=== PATIENT | female | born 1955 | race Caucasian/White ===

== ENCOUNTER → 2016-09-25 | Outpatient (REF) | payer OTHER ==
[2016-09-25 13:49] LABS: ANION GAP 5 MEQ/L (8-16); BLOOD UREA NITROGEN 10 MG/DL (7-18); CALCIUM LEVEL 8.6 MG/DL (8.8-10.2); CARBON DIOXIDE LEVEL 27 MEQ/L (21-32); CHLORIDE LEVEL 109 MEQ/L (98-107); CHOLESTEROL LEVEL 214 MG/DL (<200); CREATININE FOR GFR 0.62 MG/DL (0.55-1.02); GLOMERULAR FILTRATION RATE > 60.0 (>45); GLUCOSE, FASTING 114 MG/DL (80-110); POTASSIUM SERUM 4.1 MEQ/L (3.5-5.1); SODIUM LEVEL 141 MEQ/L (136-145); TRIGLYCERIDES LEVEL 118 MG/DL (<150)
== END ==
LOC: M LAB REF 13:04
PROVIDERS: ATTEND Nurse Practitioner Family
DX: E55.9 Vitamin D deficiency, unspecified (principal); I10 Essential (primary) hypertension

== ENCOUNTER → 2017-03-18 | Outpatient (CLI) | payer OTHER ==
--- NOTE | 2017-03-18 14:44 | REP ---
Digital diagnostic bilateral mammography with CAD and focused left breast sonography: History: Several brief episodes of bloody nipple discharge left breast which the patient associates with minor trauma over a period of the last 2 years. Pain in the left breast. Comparison mammography February 07, 2016. Findings: Routine views of each breast were augmented by a true MLO view of the left breast. There are mild scattered fibroglandular elements bilaterally. Pattern is symmetric and unchanged. No subareolar or other neodensity is seen. No spiculation or microcalcification is seen. No architectural distortion or worrisome skin change is seen. There is no evidence mammographically to suggest nipple inversion on either side. No subareolar mass or nodule is seen. Sonographic findings: The retroareolar region of the left breast is examined sonographically. There are a few slightly dilated ducts just beneath the nipple. Also noted is a 0.3 x 0.3 cm cystic area within the nipple itself on the left side which may be a small dilated breast duct segment in the nipple. No subareolar soft tissue mass is seen. No acoustic shadowing or architectural distortion is seen. Impression: BI-RADS/ACR category 2 mammogram. Benign finding(s). Routine annual screening mammography (for women over age 40). BI-RADS category 2 benign bilateral breast imaging. A small 3 mm cyst is seen within the left nipple and there are a few slightly dilated retroareolar ducts on the left. No other finding is seen. Clinical followup is recommended. This mammogram was interpreted with the aid of an FDA-approved computer-aided detection system. The patient states she/he had a clinical breast exam in February 2017. The patient letter being requested is M2. Signed by Rikki Wilson MD 03/18/2017 03:32 P
== END ==
LOC: M RAD 12:49
PROVIDERS: ATTEND Nurse Practitioner Family
DX: N64.4 Mastodynia (principal); N64.52 Nipple discharge
CPT/HCPCS: 76642; G0204

== ENCOUNTER → 2017-03-19 | Outpatient (REF) | payer OTHER | LOC: M SFHCWAGY 14:28 | PROVIDERS: ATTEND Nurse Practitioner Family | DX: Z12.4 Encounter for screening for malignant neoplasm of cervix (principal) ==

== ENCOUNTER → 2017-03-19 | Outpatient (REF) | payer OTHER | LOC: M SFHCWAGY 19:05 | PROVIDERS: ATTEND Nurse Practitioner Family | DX: N64.52 Nipple discharge (principal) ==

== ENCOUNTER 2017-06-08 09:52 | Emergency (ER) | payer OTHER | END 2017-06-08 11:40 | disposition home or self-care (01) | LOC: M ED 09:52 | DX: J20.9 Acute bronchitis, unspecified (principal); I10 Essential (primary) hypertension; M79.89 Other specified soft tissue disorders; Z87.09 Personal history of other diseases of the respiratory system; F17.200 Nicotine dependence, unspecified, uncomplicated; Z88.2 Allergy status to sulfonamides; Z79.899 Other long term (current) drug therapy | CPT/HCPCS: 71046 ==

== ENCOUNTER → 2018-04-29 | Outpatient (CLI) | payer OTHER ==
[~2018-04-29] MED LIST: AMLO10TA5 PO; AZIT500T2 PO; BENA20TA PO
--- NOTE | 2018-04-29 16:25 | REPMRS ---
Patient History The patient states she had a clinical breast exam in 04/2018. Patient is postmenopausal. No known family history of cancer. No Hormone Replacement Therapy Digital Woman Screen Mammo: April 29, 2018 - Exam #: [id number] Bilateral CC and MLO view(s) were taken. Technologist: Nathaly Branch, Technologist Prior study comparison: March 18, 2017, digital mammo diagnostic bilateral, performed at [facility]. February 07, 2016, digital woman screen mammo performed at [facility]. FINDINGS: There are scattered fibroglandular densities. There is a stable well-circumscribed 4 mm nodule in the right breast unchanged. There has been no change in the appearance of the mammogram from the prior studies. There is a mild amount of scattered fibroglandular density which is fairly symmetric. There is no interval development of dominant mass, architectural distortion, or clustered microcalcification suggestive of malignancy. 3-D tomosynthesis shows no additional findings. Assessment: BI-RADS/ACR category 2 mammogram. Benign finding(s). Recommendation Routine screening mammogram of both breasts in 1 year (for women over age 40). This patient's Lifetime Breast Cancer RIsk is estimated at 8.5 %. This mammogram was interpreted with the aid of an FDA-approved computer-aided dectection system. Electronically Signed By: Sumit Wilson MD 04/29/18 [id number]
== END ==
LOC: M WHC 13:39
PROVIDERS: ATTEND Nurse Practitioner Family
DX: Z12.31 Encounter for screening mammogram for malignant neoplasm of breast (principal); Z78.0 Asymptomatic menopausal state

== ENCOUNTER → 2018-04-29 | Outpatient (REF) | payer OTHER | LOC: M SFHCWAGY 14:10 | PROVIDERS: ATTEND Nurse Practitioner Family | DX: Z12.4 Encounter for screening for malignant neoplasm of cervix (principal) ==

== ENCOUNTER → 2018-06-12 | Outpatient (REF) | payer OTHER ==
[2018-06-12 13:26] LABS: ALBUMIN 3.7 GM/DL (3.2-5.2); ALT/SGPT 19 U/L (12-78); BILIRUBIN,TOTAL 0.5 MG/DL (0.2-1.0); BLOOD UREA NITROGEN 11 MG/DL (7-18); CALCIUM LEVEL 8.7 MG/DL (8.8-10.2); CARBON DIOXIDE LEVEL 23 MEQ/L (21-32); CHLORIDE LEVEL 110 MEQ/L (98-107); CHOLESTEROL LEVEL 205 MG/DL (<200); CHOLESTEROL RISK RATIO 5.394 (<5); CREATININE FOR GFR 0.74 MG/DL (0.55-1.30); GLOMERULAR FILTRATION RATE > 60.0 (>45); GLUCOSE, FASTING 107 MG/DL (70-100); HDL CHOLESTEROL 38 MG/DL (>40); LDL CHOLESTEROL 143 MG/DL (<100); NON-HDL-C 167 MG/DL; POTASSIUM SERUM 4.4 MEQ/L (3.5-5.1); SODIUM LEVEL 141 MEQ/L (136-145); TOTAL PROTEIN 7.1 GM/DL (6.4-8.2); TRIGLYCERIDES LEVEL 121 MG/DL (<150)
== END ==
LOC: M LAB REF 12:20
PROVIDERS: ATTEND Nurse Practitioner Adult Health
DX: E78.2 Mixed hyperlipidemia (principal); I10 Essential (primary) hypertension

== ENCOUNTER 2018-12-08 12:23 | Emergency (ER) | payer OTHER ==
[~2018-12-08] VITALS: Ht 167.6 cm; Wt 90.5 kg
[2018-12-08 13:22] LABS: BASO % 0.5 % (0.0-1.0); EOS # 0.2 10^3/uL (0.0-0.50); HEMATOCRIT 44.7 % (36.0-47.0); HEMOGLOBIN 14.9 g/dl (12.0-15.5); LYMPH # 2.9 10^3/uL (1.5-4.5); LYMPH % 39.2 % (24.0-44.0); MEAN CORPUSCULAR HEMOGLOBIN 31.3 pg (27.0-33.0); MEAN CORPUSCULAR HGB CONC 33.3 g/dl (32.0-36.5); MEAN CORPUSCULAR VOLUME 93.9 fl (80.0-96.0); MONO # 0.5 10^3/uL (0.0-0.8); MONO % 6.9 % (0.0-5.0); NEUTROPHILS # 3.7 10^3/uL (1.8-7.7); NEUTROPHILS % 51.1 % (36.0-66.0); PLATELET COUNT, AUTOMATED 236 10^3/uL (150-450); RED BLOOD COUNT 4.76 10^6/uL (4.00-5.40); WHITE BLOOD COUNT 7.3 10^3/uL (4.0-10.0)
[2018-12-08 13:35] LABS: INR 1.02; PROTHROMBIN TIME 13.1 SECONDS (11.8-14.0)
[2018-12-08 13:44] LABS: ALBUMIN 3.8 GM/DL (3.2-5.2); ALT/SGPT 18 U/L (12-78); BILIRUBIN,TOTAL 0.4 MG/DL (0.2-1.0); BLOOD UREA NITROGEN 8 MG/DL (7-18); CARBON DIOXIDE LEVEL 24 MEQ/L (21-32); CHLORIDE LEVEL 110 MEQ/L (98-107); CK-MB VALUE MASS 1.4 NG/ML (<3.6); CPK CREATINE PHOSPHOKINASE 53 U/L (26-192); CREATININE FOR GFR 0.76 MG/DL (0.55-1.30); GLOMERULAR FILTRATION RATE > 60.0 (>45); GLUCOSE, FASTING 169 MG/DL (70-100); LIPASE 138 U/L (73-393); MB/CK RELATIVE INDEX 2.64 (< OR =4); POTASSIUM SERUM 3.9 MEQ/L (3.5-5.1); SODIUM LEVEL 141 MEQ/L (136-145); TOTAL PROTEIN 7.2 GM/DL (6.4-8.2); TROPONIN I < 0.02 NG/ML (< 0.10)
[2018-12-08] MEDS ORDERED: METO1TAB32 PO (13:45)
[2018-12-08 14:45] VITALS: BP 143/80
--- NOTE | 2018-12-09 10:21 | ECGEPIP ---
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
== END 2018-12-08 15:36 | disposition home or self-care (01) ==
LOC: M ED 12:23
DX: I10 Essential (primary) hypertension (principal); Z79.899 Other long term (current) drug therapy; Z88.1 Allergy status to other antibiotic agents; Z88.2 Allergy status to sulfonamides; F17.210 Nicotine dependence, cigarettes, uncomplicated

== ENCOUNTER 2019-01-27 12:43 | Observation (INO) | payer OTHER ==
[~2019-01-27] VITALS: Ht 167.6 cm; Wt 91.2 kg
[~2019-01-27 12:43] MED LIST changes: +METO1TAB32 PO
--- NOTE | 2019-01-27 14:07 | REP ---
CT BRAIN WITHOUT CONTRAST: HISTORY: TIA. No comparison brain imaging. CT FINDINGS: Preliminary digital field reporter radiograph demonstrates the patient is edentulous. There are metallic sutures at the angle of the mandible on each side. Bone window settings demonstrate an intact bony calvarium. There is moderate vascular calcification in the distal internal carotid arteries bilaterally. No intraorbital abnormality is seen. On soft-tissue window settings, there is moderate generalized atrophy. There is no evidence of intracranial hemorrhage. No infarct, mass, extra-axial fluid collection, or midline shift is seen. There is minimal small vessel change. IMPRESSION: Mild generalized volume loss. Vascular calcification. No acute intracranial abnormality. Electronically Signed by Rikki Wilson MD 01/27/2019 04:54 P
[2019-01-27 15:02] LABS: HEMATOCRIT 47.2 % (36.0-47.0); HEMOGLOBIN 15.5 g/dl (12.0-15.5); MEAN CORPUSCULAR HEMOGLOBIN 30.7 pg (27.0-33.0); MEAN CORPUSCULAR HGB CONC 32.8 g/dl (32.0-36.5); MEAN CORPUSCULAR VOLUME 93.5 fl (80.0-96.0); PLATELET COUNT, AUTOMATED 305 10^3/uL (150-450); RED BLOOD COUNT 5.05 10^6/uL (4.00-5.40); WHITE BLOOD COUNT 10.7 10^3/uL (4.0-10.0)
--- NOTE | 2019-01-27 15:28 | REP ---
CHEST, SINGLE VIEW: There is no evidence of acute infiltrate. No pleural effusion is seen. The heart is normal in size. The mediastinal silhouette is unremarkable. The visualized osseous structures are intact. There is calcification of the thoracic aorta. IMPRESSION: No acute pulmonary disease. Electronically Signed by Elliott Pitts MD 01/28/2019 06:08 P
--- NOTE | 2019-01-27 17:42 | HPEPDOC ---
[facility] Medical History & Physical Date of Admission Jan 27, 2019 Date of Service: Jan 27, 2019 Other Provider Eleazar Kern Attending Physician: ANNIE JIMENEZ MD History and Physical CHIEF COMPLAINT: Blurry vision HISTORY OF PRESENT ILLNESS: 63-year-old female with past medical history of hypertension, presents from primary care's office for blurry vision and hypertension. Patient has had a long history of hypertension, poorly controlled over the past few months with multiple medication adjustments and continues to have uncontrolled hypertension. Patient reports one episode of blurry and distorted vision on Saturday, which lasted for 45 minutes and self resolved. She has never had a similar episode in the past and has not recurred since. She had a complete evaluation by an 2nd pressman 12 days ago. She is currently asymptomatic, does not have any complaints at this time and reports she would not have come to the ED if her primary care did not insist. Workup in the ED including EKG, labs and CAT scan of the head are negative for acute pathology. ED physician discussed the case with neurology, who recommended admission with further workup prior to discharging home. Patient denies any dizziness, chest pain, shortness of breath, abdominal pain, nausea, vomiting or constipation at this time. 10 point review of system was negative except for above PAST MEDICAL HISTORY: 1. Hypertension. 2. Active smoker. PAST SURGICAL HISTORY: 1. Jaw surgery. SOCIAL HISTORY: Marital status: . Tobacco use:1 pack per day for the past 40 years ETOH: Social FAMILY HISTORY: Noncontributory ALLERGIES: Please see below. HOME MEDICATIONS: Please see below. PHYSICAL EXAMINATION: VITAL SIGNS: See below GENERAL APPEARANCE: No distress. HEENT: Normocephalic, atraumatic, EOMI, pupils equal and reactive to light, moist mucous membranes. CARDIOVASCULAR: S1, S2, no murmurs appreciated. LUNGS: Clear to auscultation. ABDOMEN: Soft, nontender, nondistended, positive bowel sounds. EXTREMITIES: Range of motion intact. NEUROLOGICAL: Alert and oriented 3, no focal deficits. PSYCHIATRIC: Calm. LABORATORY DATA: See below. IMAGING: CT head negative for acute pathology MICROBIOLOGY: Please see below. ASSESSMENT: 63-year-old female with past medical history of hypertension and active smoking, presents with symptoms concerning for TIA, to be admitted for fu rther neurological workup.. . PLAN: 1. Blurry vision. CT head negative. MRI pending. Further workup as per neurology. Aspirin. Patient does not appear to require any need for PT/OT or swallow eval 2. Hypertension. Blood pressure is poorly controlled. Continue home meds. Will add and titrate medication as needed for adequate blood pressure control. DVT prophylaxis: Heparin subcutaneous. GI prophylaxis: Not needed at this time Vital Signs Vital Signs Date Time Temp Pulse Resp B/P (MAP) Pulse Ox O2 Delivery O2 Flow Rate FiO2 01/27/19 15:34 67 16 140/71 (94) 96 01/27/19 12:44 96.6 Room Air Laboratory Data Labs 24H Laboratory Tests 2 01/27/19 13:41: POC Glucose (Misc Panel) 109H, POC Sodium (Misc Panel) 140, POC Potassium (Misc Panel) 4.2, POC Chloride (Misc Panel) 108, POC Total CO2 (Misc Panel) 24.0, POC Blood Urea Nitrogen (Misc Panel 9, POC Ionized Calcium (Misc Panel) 4.9, POC Creatinine (Misc Panel) 0.6, POC Hematocrit (Misc Panel) 48.0 01/27/19 14:53: Nucleated Red Blood Cells % (auto) 0.0 CBC/BMP Laboratory Tests 01/27/19 14:53 Red Blood Count 5.05, Mean Corpuscular Volume 93.5, Mean Corpuscular Hemoglobin 30.7, Mean Corpuscular Hemoglobin Concent 32.8, Red Cell Distribution Width 13.6 Home Medications Scheduled Amlodipine Besylate (Amlodipine Besylate) 10 Mg Tab, 10 MG PO DAILY Benazepril Hcl (Benazepril HCl) 20 Mg Tab, 20 MG PO DAILY Metoprolol Succinate (Metoprolol Succinate) 25 Mg Tab.er.24h, 25 MG PO DAILY Allergies Coded Allergies: Sulfa (Sulfonamide Antibiotics) (Verified Allergy, Unknown, rash, 01/27/19) A-FIB/CHADSVASC A-FIB History Current/History of A-Fib/PAF?: No ANNIE JIMENEZ MD Jan 27, 2019 16:47
--- NOTE | 2019-01-27 20:42 | ECGEPIP ---
[facility] - ED Test Date: 2019-01-27 Pat Name: EDDIE NJ Department: Room: 01[facility] Gender: Female Physical Medicine Specialist: kerry : 1955 Requested By: Silas Reynoso Order Number: [id number] Reading MD: Silas Logan Measurements Intervals [place] Rate: 66 P: 51 IA: 165 QRS: 83 QRSD: 86 T: 56 QT: 397 QTc: 418 Interpretive Statements SINUS RHYTHM NSTTW ABNORMALITIES SIMILAR TO 12/08/18 Electronically Signed on 01-27-2019 20:42:20 EDT by Silas Logan
[2019-01-27] MEDS: HEPARIN SOD (PORCINE) 5000 UNITS/ML VIAL SC SCH (21:03)
[2019-01-27 22:00] VITALS: BP 160/80
[2019-01-28] MEDS: HEPARIN SOD (PORCINE) 5000 UNITS/ML VIAL SC SCH (05:09)
[2019-01-28 05:47] LABS: HEMATOCRIT 43.8 % (36.0-47.0); HEMOGLOBIN 14.4 g/dl (12.0-15.5); MEAN CORPUSCULAR HEMOGLOBIN 30.8 pg (27.0-33.0); MEAN CORPUSCULAR HGB CONC 32.9 g/dl (32.0-36.5); MEAN CORPUSCULAR VOLUME 93.8 fl (80.0-96.0); PLATELET COUNT, AUTOMATED 261 10^3/uL (150-450); RED BLOOD COUNT 4.67 10^6/uL (4.00-5.40); WHITE BLOOD COUNT 8.9 10^3/uL (4.0-10.0)
[2019-01-28 06:00] VITALS: BP 162/86
[2019-01-28 06:10] LABS: ALBUMIN 3.3 GM/DL (3.2-5.2); ALT/SGPT 19 U/L (12-78); BILIRUBIN,TOTAL 0.6 MG/DL (0.2-1.0); BLOOD UREA NITROGEN 10 MG/DL (7-18); CALCIUM LEVEL 8.5 MG/DL (8.8-10.2); CARBON DIOXIDE LEVEL 27 MEQ/L (21-32); CHLORIDE LEVEL 109 MEQ/L (98-107); CREATININE FOR GFR 0.68 MG/DL (0.55-1.30); GLOMERULAR FILTRATION RATE > 60.0 (>45); GLUCOSE, FASTING 108 MG/DL (70-100); MAGNESIUM LEVEL 2.4 MG/DL (1.8-2.4); POTASSIUM SERUM 4.1 MEQ/L (3.5-5.1); SODIUM LEVEL 141 MEQ/L (136-145); TOTAL PROTEIN 7.1 GM/DL (6.4-8.2)
[2019-01-28 08:04] VITALS: BP 142/66
[2019-01-28 09:00] VITALS: BP 144/66
[2019-01-28] MEDS ORDERED: ASPIRIN 81 MG ENTERIC TAB PO SCH (09:00)
[2019-01-28] MEDS ORDERED: BENAZEPRIL 20 MG TAB PO SCH (09:00)
[2019-01-28] MEDS ORDERED: METOPROLOL SUCC *XL* 25MG TAB (TopROL *XL*) PO SCH (09:00)
[2019-01-28] MEDS ORDERED: hydroCHLOROthiazide 25 MG TAB PO SCH (09:00)
[2019-01-28] MEDS ORDERED: amLODIPine 10 MG TAB PO SCH (09:00)
--- NOTE | 2019-01-28 10:30 | REP ---
MRI BRAIN WITHOUT CONTRAST: HISTORY: Blurred vision. Rule out CVA. Comparison CT study is from January 27, 2019. TECHNIQUE: Axial and sagittal imaging planes are utilized for T1- and T2-weighted scans. Sequences include spin-echo, fast spin echo, FLAIR, and diffusion weighted sequences. MRI FINDINGS: No bony calvarial lesion is seen. Craniocervical junction and upper cervical cord are normal in appearance. There is no MR evidence of significant paranasal sinus disease. No intraorbital abnormality is seen. There is no evidence of intracranial hemorrhage or mass. Diffusion sequence shows no evidence of restricted diffusion to suggest acute ischemia. There is some generalized volume loss. There are scattered foci of subcortical and periventricular white matter hyperintensity in the supratentorial brain bilaterally consistent with small vessel atherosclerotic changes. No extra-axial fluid collection or midline shift is seen. IMPRESSION: Small vessel atherosclerotic changes. No acute intracranial abnormality. Electronically Signed by Rikki Wilson MD 01/28/2019 12:57 P
[2019-01-28] MEDS ORDERED: HYDR25TAB PO (11:12)
[2019-01-28] MEDS ORDERED: ASPI81TAEC PO (11:12)
--- NOTE | 2019-01-28 11:17 | DS.PDOC ---
Discharge Summary General Date of Admission Jan 27, 2019 at 12:44 Date of Discharge 01/28/2019 Attending Physician: ANNIE JIMENEZ MD Discharge Summary PROCEDURES PERFORMED DURING STAY: None. ADMITTING DIAGNOSES: 1. TIA. DISCHARGE DIAGNOSES: 1. TIA. COMPLICATIONS/CHIEF COMPLAINT: Blurred Vision HISTORY OF PRESENT ILLNESS: 63-year-old female with past medical history of poorly controlled hypertension admitted for TIA. She reports one episode of blurry and distorted vision that occurred 3 days prior to admission. She presented to the ED because her PCP felt that she should be evaluated. She has not had similar episodes since, she was evaluated by an product manager naye mariscal mesa 2 weeks ago. She had a CT scan in the ED that was negative for any acute pathology, follow-up MRI has also been negative for any acute pathology. She is not compliant with metoprolol because she reports it causes her to have diarrhea, blood pressure has been poorly controlled, will start hydroch lorothiazide 25 mg daily. HOSPITAL COURSE: As above. DISCHARGE MEDICATIONS: Please see below. ALLERGIES: Please see below. PHYSICAL EXAMINATION ON DISCHARGE: VITAL SIGNS: Please see below. GENERAL: No distress HEENT: Normocephalic, atraumatic. Moist mucous membranes NECK: Supple CARDIOVASCULAR EXAMINATION: S1, S2, no murmurs appreciated RESPIRATORY EXAMINATION: Clear to auscultation, no wheezing, no rhonchi appreciated ABDOMINAL EXAMINATION: Soft, nontender, nondistended, positive bowel sounds EXTREMITIES: Range of motion intact SKIN: No rash NEUROLOGICAL EXAMINATION: Alert and oriented 3, no focal deficits PSYCHIATRIC EXAMINATION: Calm LABORATORY DATA: Please see below. IMAGING: CT scan and MRI were negative for any acute pathology PROGNOSIS: Good ACTIVITY: As tolerated. DIET: Cardiac DISCHARGE PLAN: Patient is to follow with primary care physician within one to 2 weeks for further blood pressure check. Patient has follow-up with ophthalmology due to blurry vision that occurred after her previous evaluation. Patient only has an appointment for caterers helper within 2 weeks. DISPOSITION: . DISCHARGE INSTRUCTIONS: 1. As above. DISCHARGE CONDITION: Stable. TIME SPENT ON DISCHARGE: Greater than 37 minutes. Vital Signs/I&Os Vital Signs Date Time Temp Pulse Resp B/P (MAP) Pulse Ox O2 Delivery O2 Flow Rate FiO2 01/28/19 09:00 144/66 (92) 01/28/19 08:03 64 01/28/19 06:00 98.2 17 98 01/27/19 18:11 Room Air I&O- Last 24 Hours up to 6 AM 01/28/19 06:00 Intake Total 1010 ml Balance 1010 ml Laboratory Data Labs 24H Laboratory Tests 2 01/27/19 13:41: POC Glucose (Misc Panel) 109H, POC Sodium (Misc Panel) 140, POC Potassium (Misc Panel) 4.2, POC Chloride (Misc Panel) 108, POC Total CO2 (Misc Panel) 24.0, POC Blood Urea Nitrogen (Misc Panel 9, POC Ionized Calcium (Misc Panel) 4.9, POC Creatinine (Misc Panel) 0.6, POC Hematocrit (Misc Panel) 48.0 01/27/19 14:53: Nucleated Red Blood Cells % (auto) 0.0 01/28/19 05:30: Nucleated Red Blood Cells % (auto) 0.0, Anion Gap 5L, Glomerular Filtration Rate > 60.0, Blood Urea Nitrogen 10, Creatinine 0.68, Sodium Level 141, Potassium Level 4.1, Chloride Level 109H, Carbon Dioxide Level 27, Calcium Level 8.5L, Aspartate Amino Transf (AST/SGOT) 8, Alanine Aminotransferase (ALT/SGPT) 19, Alkaline Phosphatase 71, Total Bilirubin 0.6, Total Protein 7.1, Albumin 3.3, Magnesium Level 2.4, Albumin/Globulin Ratio 0.87L CBC/BMP Laboratory Tests 01/27/19 14:53 Red Blood Count 5.05, Mean Corpuscular Volume 93.5, Mean Corpuscular Hemoglobin 30.7, Mean Corpuscular Hemoglobin Concent 32.8, Red Cell Distribution Width 13.6 01/28/19 05:30 Red Blood Count 4.67, Mean Corpuscular Volume 93.8, Mean Corpuscular Hemoglobin 30.8, Mean Corpuscular Hemoglobin Concent 32.9, Red Cell Distribution Width 13.5, Calcium Level 8.5 L, Aspartate Amino Transf (AST/SGOT) 8, Alanine Amino transferase (ALT/SGPT) 19, Alkaline Phosphatase 71, Total Bilirubin 0.6, Total Protein 7.1, Albumin 3.3 Discharge Medications Scheduled Amlodipine Besylate (Amlodipine Besylate) 10 Mg Tab, 10 MG PO DAILY, (Reported) Aspirin (Aspirin EC) 81 Mg Tablet.dr, 81 MG PO DAILY Benazepril Hcl (Benazepril HCl) 20 Mg Tab, 20 MG PO DAILY, (Reported) Hydrochlorothiazide (Hydrochlorothiazide) 25 Mg Tablet, 25 MG PO DAILY Allergies Coded Allergies: Sulfa (Sulfonamide Antibiotics) (Verified Allergy, Unknown, rash, 01/27/19) ANNIE JIMENEZ MD Jan 28, 2019 11:17
== END 2019-01-28 12:34 | disposition home or self-care (01) ==
LOC: M ED 12:43 → M ED INP 12:44 → M MSPAV 18:15
PROVIDERS: ADMIT Internal Medicine; ATTEND Internal Medicine
DX: G45.9 Transient cerebral ischemic attack, unspecified (principal); I10 Essential (primary) hypertension; I67.82 Cerebral ischemia; H53.8 Other visual disturbances; Z79.899 Other long term (current) drug therapy; Z79.82 Long term (current) use of aspirin; Z88.2 Allergy status to sulfonamides; F17.210 Nicotine dependence, cigarettes, uncomplicated

== ENCOUNTER → 2019-02-17 | Outpatient (CLI) | payer OTHER ==
[~2019-02-17] MED LIST changes: +ASPI81TAEC PO; -AZIT500T2 PO; +AZIT500T5 PO; +HYDR25TAB PO
--- NOTE | 2019-02-17 09:42 | REP ---
Clinical: Primary/essential Hypertension Technique: Pitts scale and color Doppler evaluation of the kidneys and renal vasculature using curved array transducer. Findings: The kidneys are essentially normal in contour size and echogenicity and reniform shape without hydronephrosis, nephrolithiasis, cystic or renal mass lesion. Right kidney measures 11.3 x 4.9 x 3.8 cm . Left kidney measures 12.0 x 4.9 x 5.1 cm . Bladder is incompletely distended and grossly normal by current evaluation. Color Doppler evaluation of the renal vasculature demonstrates normal arterial wave patterns, velocities, renal aortic ratios, resistive indices and the acceleration time. No sonographic evidence for renal arterial stenosis noted. Renal vein is patent. Right Kidney: Peak arterial velocity: 94 cm/sec . Renal aortic ratio: 0.71 . Resistive indices: 0.77 . Acceleration times: 0.020 - 0.024 . Left kidney: Peak arterial velocity: 80 cm/sec . Renal aortic ratio: 0.60 . Resistive indices: 0.73 - 0.76 . Acceleration times: 0.024 . Impression: Normal renal ultrasound. No evidence for renal arterial stenosis. Electronically Signed by Fernando Mathur MD 02/17/2019 09:34 A
--- NOTE | 2019-02-17 09:53 | REP ---
Clinical: Essential hypertension . Technique: Pitts scale and color Doppler evaluation using linear high frequency transducer Findings: Two-dimensional pitts scale and color images demonstrate mild mixed atheromatous plaquing with normal arterial lumen, laminar flow and no appreciable narrowing. Color Doppler interrogation demonstrates normal arterial wave patterns and velocities with no significant spectral broadening. Normal flow direction is appreciated in the bilateral vertebral arteries. RIGHT (cm/s) LEFT (cm/s) ICA peak systolic velocity 83.9 80.2 ICA diastolic velocity 29.0 25.6 ECA peak systolic velocity 96.0 68.3 CCA peak systolic velocity 108 104 ICA/CCA ratio 0.7 0.7 Impression: No hemodynamically significant areas of narrowing or stenosis appreciated. Based on set standards narrowing falls within the less than 50% range. Electronically Signed by Fernando Mathur MD 02/17/2019 09:46 A
--- NOTE | 2019-02-20 12:56 | SLEEPHOME ---
DATE OF STUDY: 02/17/2019 REFERRING PROVIDER: Dr. Martinez Diagnostic home sleep testing was performed due to concern for the obstructive sleep apnea syndrome in this patient with a history of snoring. For testing, a nocturnal T3 respiratory monitoring device was used. Continuous record was made of pulse, oxygen saturation, airflow, chest and abdominal strain and body position. 9 hours and 59 minutes of data were reviewed. There were 7 hours and 18 minutes marked as time in bed. During the interval marked time in bed, there were only 16 respiratory events identified of 10 seconds in duration or greater for a respiratory event index of only 2.2. The events that were seen were hypopneic. There were 6 mixed apneas. Baseline pulse rate was 67, pulse rate ranged 52-95. Baseline saturation was 90%. On one occasion, there was an oxygen desaturation to 86%, which may have been artifactual. Significant snoring was however noted over the course of the study. IMPRESSION: Essentially normal diagnostic home sleep test with snoring.
== END ==
LOC: M RAD 07:39 → M SLEEP HO 07:39
PROVIDERS: ATTEND Internal Medicine Cardiovascular Disease
DX: I10 Essential (primary) hypertension (principal); I65.23 Occlusion and stenosis of bilateral carotid arteries
CPT/HCPCS: 76775; 93880; 93975; G0399

== ENCOUNTER → 2019-04-30 | Outpatient (CLI) | payer OTHER ==
--- NOTE | 2019-04-30 18:52 | REPMRS ---
Patient History The patient states she had a clinical breast exam in 2019. No known family history of cancer. No Hormone Replacement Therapy Digital Woman Screen Mammo: April 30, 2019 - Exam #: [id number] Bilateral CC and MLO view(s) were taken. Technologist: Cleo Case, Technologist Prior study comparison: April 29, 2018, bilateral digital woman screen mammo performed at [facility]. March 18, 2017, digital mammo diagnostic bilateral, performed at [facility]. February 07, 2016, digital woman screen mammo performed at [facility]. FINDINGS: There are scattered fibroglandular densities. There is no change in the 4 mm nodule in the lateral aspect of the right breast. There has been no change in the appearance of the mammogram from the prior studies. There is a mild amount of scattered fibroglandular density which is fairly symmetric. There is no interval development of dominant mass, architectural distortion, or grouped microcalcification suggestive of malignancy. 3-D tomosynthesis shows no additional findings. Assessment: BI-RADS/ACR category 2 mammogram. Benign Findings. Recommendation Routine screening mammogram of both breasts in 1 year (for women over age 40). This patient's Lifetime Breast Cancer Risk is estimated at 8.1 %. This mammogram was interpreted with the aid of an FDA-approved computer-aided dectection system. Electronically Signed By: Sumit Wilson MD 04/30/19 [id number]
== END ==
LOC: M WHC 13:33
PROVIDERS: ATTEND Nurse Practitioner Family
DX: Z12.31 Encounter for screening mammogram for malignant neoplasm of breast (principal)

== ENCOUNTER → 2020-12-01 | Outpatient (CLI) | payer OTHER ==
[~2020-12-01] MED LIST changes: -AMLO10TA5 PO; +AMLO1TAB25 PO; +ASPI-569 PO; -ASPI81TAEC PO; +HYDR-3490 PO; -HYDR25TAB PO
--- NOTE | 2020-12-01 16:31 | REPMRS ---
Patient History The patient states she had a clinical breast exam in November 2020. No known family history of cancer. No Hormone Replacement Therapy Patient states no breast complaints today. Patient has signed MRS History Sheet. Digital Woman Screen Mammo: December 01, 2020 - Exam #: [id number] Bilateral CC and MLO view(s) were taken. Technologist: Sussy Meneses, Technologist Prior study comparison: April 30, 2019, bilateral digital woman screen mammo performed at [facility]. April 29, 2018, bilateral digital woman screen mammo performed at [facility]. March 18, 2017, digital mammo diagnostic bilateral, performed at [facility]. FINDINGS: The breast tissue is almost entirely fat. The Volpara volumetric breast density category is: A. A stable nodular opacity is again seen in the right breast unchanged.. There has been no change in the appearance of the mammogram from the prior studies. There is no interval development of dominant mass, architectural distortion, or grouped microcalcification typical of malignancy. 3-D tomosynthesis shows no additional findings. Assessment: BI-RADS/ACR category 2 mammogram. Benign Findings. Recommendation Routine screening mammogram of both breasts in 1 year (for women over age 40). This patient's [facility] Lifetime Breast Cancer RIsk is estimated at 7.7 %. This mammogram was interpreted with the aid of an FDA-approved computer-aided dectection system. Electronically Signed By: Sumit Wilson MD 12/01/20 0113
== END ==
LOC: M WHC 14:46
PROVIDERS: ATTEND Nurse Practitioner Women's Health
DX: Z12.31 Encounter for screening mammogram for malignant neoplasm of breast (principal)

== ENCOUNTER → 2020-12-01 | Outpatient (REF) | payer OTHER | LOC: M SFHCWAGY 18:08 | PROVIDERS: ATTEND Nurse Practitioner Women's Health | DX: Z12.4 Encounter for screening for malignant neoplasm of cervix (principal); Z98.890 Other specified postprocedural states | CPT/HCPCS: 87624; G0123 ==

== ENCOUNTER 2021-01-10 19:52 | Emergency (ER) | payer OTHER ==
[~2021-01-10] VITALS: Ht 167.6 cm; Wt 92.9 kg
[2021-01-10] MEDS ORDERED: KETOROLAC 30 MG/ML 1ML VIAL IV ONE (21:20)
[2021-01-10 21:49] LABS: BASO % 0.4 % (0.0-1.0); EOS # 0.2 10^3/uL (0.0-0.5); HEMATOCRIT 40.9 % (36.0-47.0); HEMOGLOBIN 13.7 g/dl (12.0-15.5); LYMPH # 3.3 10^3/uL (1.5-5.0); LYMPH % 33.3 % (24.0-44.0); MEAN CORPUSCULAR HEMOGLOBIN 30.4 pg (27.0-33.0); MEAN CORPUSCULAR HGB CONC 33.5 g/dl (32.0-36.5); MEAN CORPUSCULAR VOLUME 90.7 fl (80.0-96.0); MONO # 1.1 10^3/uL (0.0-0.8); MONO % 11.2 % (2.0-8.0); NEUTROPHILS # 5.3 10^3/uL (1.5-8.5); NEUTROPHILS % 52.9 % (36.0-66.0); PLATELET COUNT, AUTOMATED 271 10^3/uL (150-450); RED BLOOD COUNT 4.51 10^6/uL (4.00-5.40)
--- NOTE | 2021-01-10 21:49 | REPVR ---
PROCEDURE INFORMATION: Exam: XR Chest Exam date and time: 01/10/2021 9:41 PM Age: 65 years old Clinical indication: Pain; Angina pectoris; Additional info: Chest pain TECHNIQUE: Imaging protocol: XR of the chest. Views: 1 view. COMPARISON: CR Chest, 1 view 01/27/2019 2:48 PM FINDINGS: Lungs: Unremarkable. No consolidation. Pleural spaces: Unremarkable. No pleural effusion. No pneumothorax. Heart/Mediastinum: Unremarkable. No cardiomegaly. Bones/joints: Unremarkable. IMPRESSION: No acute findings. Electronically signed by: Ancelmo Hayden On 01/10/2021 21:49:11 PM
[2021-01-10 22:18] LABS: BLOOD UREA NITROGEN 15 MG/DL (7-18); CALCIUM LEVEL 9.3 MG/DL (8.8-10.2); CARBON DIOXIDE LEVEL 29 MEQ/L (21-32); CHLORIDE LEVEL 104 MEQ/L (98-107); CK-MB VALUE MASS 1.3 NG/ML (<3.6); CPK CREATINE PHOSPHOKINASE 62 U/L (26-192); GLOMERULAR FILTRATION RATE > 60.0 (>45); GLUCOSE, FASTING 146 MG/DL (70-100); MAGNESIUM LEVEL 2.5 MG/DL (1.8-2.4); NT-PRO BNP 97 PG/ML (<125); POTASSIUM SERUM 3.6 MEQ/L (3.5-5.1); SODIUM LEVEL 139 MEQ/L (136-145); TROPONIN I < 0.02 NG/ML (< 0.10)
[2021-01-10 22:45] VITALS: BP 139/65
[2021-01-10] MEDS ORDERED: IBUP-1022 PO (22:52)
--- NOTE | 2021-01-12 23:51 | ECGEPIP ---
[facility] - ED Test Date: 2021-01-10 Pat Name: EDDIE NJ Department: Room: - Gender: Female Supervisor Stave Cutting: ED : 1955 Requested By: PRATIMA Lynn Order Number: [id number] Reading MD: Silas Logan Measurements Intervals [place] Rate: 70 P: 66 TN: 176 QRS: 80 QRSD: 82 T: 74 QT: 396 QTc: 427 Interpretive Statements Sinus rhythm with premature atrial complexes Nonspecific ST abnormality SIMILAR TO 01/27/19 Electronically Signed on 01-12-2021 23:51:25 EDT by Silas Logan
== END 2021-01-10 23:34 | disposition home or self-care (01) ==
LOC: M ED 19:52
DX: M94.0 Chondrocostal junction syndrome [Tietze] (principal); I10 Essential (primary) hypertension; E78.5 Hyperlipidemia, unspecified; F17.200 Nicotine dependence, unspecified, uncomplicated; Z88.2 Allergy status to sulfonamides; Z98.51 Tubal ligation status; Z79.899 Other long term (current) drug therapy
CPT/HCPCS: 71045; 80048; 82550; 82553; 83735; 83880; 84484; 85025; 93005; 96374; 99284; J1885

== ENCOUNTER → 2021-06-02 | Outpatient (CLI) | payer OTHER ==
[~2021-06-02] MED LIST changes: +IBUP-1022 PO; +PROHANCE 279.3MG/ML 15ML VIAL ONE; +PROHANCE 279.3MG/ML 5ML VIAL ONE
== END ==
LOC: M PLAIMG 13:22
PROVIDERS: ATTEND Radiology Radiation Oncology
DX: R91.8 Other nonspecific abnormal finding of lung field (principal)
CPT/HCPCS: 70553; A9576

== ENCOUNTER → 2021-06-20 | Outpatient (REF) | payer OTHER ==
[~2021-06-20] MED LIST changes: -PROHANCE 279.3MG/ML 15ML VIAL ONE; -PROHANCE 279.3MG/ML 5ML VIAL ONE
[2021-06-21 13:05] LABS: ATYPICAL LYMPH 3 % (0-5); EOSINOPHILS 2 % (0-3); LYMPHOCYTES 87 % (16-44); MONOCYTES 5 % (0-5); NEUTROPHILS 3 % (28-66)
[2021-06-21 13:08] LABS: PLATELET ESTIMATE DECREASED (NORMAL); SMUDGE CELLS 1+
== END ==
LOC: M LAB REF 11:31
PROVIDERS: ATTEND Internal Medicine
DX: D72.89 Other specified disorders of white blood cells (principal)

== ENCOUNTER → 2021-06-28 | Outpatient (CLI) | payer OTHER ==
[~2021-06-28] MED LIST changes: +ATOR1TAB21
== END ==
LOC: M ONCR 13:24
PROVIDERS: ATTEND General Practice
DX: C34.11 Malignant neoplasm of upper lobe, right bronchus or lung (principal); Z87.891 Personal history of nicotine dependence; Z88.2 Allergy status to sulfonamides; Z79.899 Other long term (current) drug therapy

== ENCOUNTER → 2021-07-20 | Outpatient (RCR) | payer OTHER ==
[~2021-07-20] MED LIST changes: +FAMO20TA PO; +LIDO2SOL9 PO; +OMEP40CA4 PO
== END ==
LOC: M ONCR 06-30 12:57
PROVIDERS: ATTEND General Practice
DX: C34.11 Malignant neoplasm of upper lobe, right bronchus or lung (principal)

== ENCOUNTER → 2021-07-25 | Outpatient (REF) | payer OTHER ==
[~2021-07-25] MED LIST changes: -ATOR1TAB21; +ATOR1TAB21 PO; +ETOP50CA2 PO; +HYDR-3713 PO; +HYDR12.55 PO; +PROC10TA5 PO
[2021-07-25 19:06] LABS: LYMPHOCYTES 58 % (16-44)
[2021-07-25 19:07] LABS: MONOCYTES 4 % (0-5); NEUTROPHILS 36 % (28-66); PLATELET CLUMPS SMALL AMT; PLATELET ESTIMATE NORMAL (NORMAL)
== END ==
LOC: M LAB REF 16:29
PROVIDERS: ATTEND Internal Medicine
DX: C34.90 Malignant neoplasm of unspecified part of unspecified bronchus or lung (principal)

== ENCOUNTER 2021-07-26 10:35 | Inpatient (IN) | payer OTHER ==
[~2021-07-26] VITALS: Ht 167.6 cm; Wt 94.8 kg
[2021-07-26] VITALS (10 sets, daily range): BP systolic 125–161; BP diastolic 61–80; O2SAT 92
[~2021-07-26 10:35] MED LIST changes: -ETOP50CA2 PO; -HYDR-3713 PO; -HYDR12.55 PO; -PROC10TA5 PO
[2021-07-26] MEDS ORDERED: HYDR-3713 PO (10:46)
[2021-07-26] MEDS ORDERED: SUCRALFATE SUSP 1GM/10ML UD PO ONE ×2 (11:05→14:25)
[2021-07-26] MEDS ORDERED: GI COCKTAIL 50ML BTL(HYOSCYAMINE/MAALOX/LIDOCAINE VISCOUS)(1:3:1) PO ONE (11:05)
[2021-07-26 12:01] LABS: HEMATOCRIT 22.2 % (36.0-47.0); HEMOGLOBIN 7.7 g/dl (12.0-15.5); LYMPH # 0.3 10^3/uL (1.5-5.0); MEAN CORPUSCULAR HEMOGLOBIN 31.4 pg (27.0-33.0); MEAN CORPUSCULAR HGB CONC 34.7 g/dl (32.0-36.5); MEAN CORPUSCULAR VOLUME 90.6 fl (80.0-96.0); PLATELET COUNT, AUTOMATED 156 10^3/uL (150-450); RED BLOOD COUNT 2.45 10^6/uL (4.00-5.40)
[2021-07-26 12:05] LABS: WHITE BLOOD COUNT 0.4 10^3/uL (4.0-10.0)
[2021-07-26 12:34] LABS: ALBUMIN 3.5 GM/DL (3.2-5.2); ALT/SGPT 18 U/L (12-78); BILIRUBIN,DIRECT 0.3 MG/DL (0.0-0.2); BILIRUBIN,TOTAL 0.9 MG/DL (0.2-1.0); BLOOD UREA NITROGEN 15 MG/DL (7-18); CALCIUM LEVEL 8.8 MG/DL (8.8-10.2); CARBON DIOXIDE LEVEL 29 MEQ/L (21-32); CHLORIDE LEVEL 96 MEQ/L (98-107); CREATININE FOR GFR 0.77 MG/DL (0.55-1.30); GLOMERULAR FILTRATION RATE > 60.0 (>45); GLUCOSE, FASTING 135 MG/DL (70-100); LIPASE 49 U/L (73-393); NT-PRO BNP 84 PG/ML (<125); POTASSIUM SERUM 3.8 MEQ/L (3.5-5.1); SODIUM LEVEL 131 MEQ/L (136-145); TOTAL PROTEIN 6.9 GM/DL (6.4-8.2)
[2021-07-26 12:35] LABS: CK-MB VALUE MASS < 1.0 NG/ML (<3.6); CPK CREATINE PHOSPHOKINASE 35 U/L (26-192); MB/CK RELATIVE INDEX 2.86 (< OR =4)
[2021-07-26] MEDS ORDERED: ISOVUE-370 76% 100ML VIAL As Ordered ONE (12:42)
[2021-07-26 13:25] LABS: CK-MB VALUE MASS < 1.0 NG/ML (<3.6); CPK CREATINE PHOSPHOKINASE 33 U/L (26-192); MB/CK RELATIVE INDEX 3.03 (< OR =4)
[2021-07-26] MEDS ORDERED: PERCOCET 5MG/325MG TAB PO ONE (14:20)
[2021-07-26] MEDS ORDERED: HOME MED LIST COMPLETE! XX SCH (15:15)
[2021-07-26] MEDS ORDERED: FAMO20TA PO (15:15)
[2021-07-26] MEDS ORDERED: HYDR12.55 PO (15:15)
[2021-07-26] MEDS ORDERED: ETOP50CA2 PO (15:15)
[2021-07-26] MEDS ORDERED: PROC10TA5 PO (15:15)
[2021-07-26 15:32] LABS: RSV AMPLIFICATION NEGATIVE (NEGATIVE)
[2021-07-26] MEDS ORDERED: FAMOTIDINE 20 MG TAB PO PRN (15:45)
[2021-07-26] MEDS ORDERED: NORCO, ANEXSIA 5/325MG TABLET (HYDROcodone/ACETAMINOPHEN) PO PRN (15:50)
[2021-07-26] MEDS ORDERED: LIDOCAINE 5% (LIDODERM) PATCH TD ONE (18:00)
[2021-07-26] MEDS: ATORVASTATIN 20 MG TAB PO SCH (22:01)
[2021-07-26] MEDS: NORCO, ANEXSIA 5/325MG TABLET (HYDROcodone/ACETAMINOPHEN) PO PRN (22:03)
[2021-07-26] MEDS: ACETAMINOPHEN TAB 650MG DOSE (2X325MG) PO PRN (22:42)
[2021-07-27 02:00] VITALS: BP 130/72
[2021-07-27 05:45] LABS: HEMATOCRIT 27.7 % (36.0-47.0); LYMPH # 0.3 10^3/uL (1.5-5.0); LYMPH % 81.1 % (24.0-44.0); MEAN CORPUSCULAR VOLUME 85.8 fl (80.0-96.0); MONO % 8.1 % (2.0-8.0); NEUTROPHILS % 10.8 % (36.0-66.0); PLATELET COUNT, AUTOMATED 120 10^3/uL (150-450); RED BLOOD COUNT 3.23 10^6/uL (4.00-5.40)
[2021-07-27 05:46] LABS: HEMOGLOBIN 9.7 g/dl (12.0-15.5); WHITE BLOOD COUNT 0.4 10^3/uL (4.0-10.0)
[2021-07-27 06:00] VITALS: BP 142/78
[2021-07-27] MEDS: ACETAMINOPHEN TAB 650MG DOSE (2X325MG) PO PRN ×2 (06:00→14:28)
[2021-07-27] MEDS ORDERED: **NOTE PATIENT COMMENT** MISC XX ONE (06:00)
[2021-07-27 06:05] LABS: BLOOD UREA NITROGEN 17 MG/DL (7-18); CALCIUM LEVEL 9.2 MG/DL (8.8-10.2); CARBON DIOXIDE LEVEL 27 MEQ/L (21-32); CHLORIDE LEVEL 95 MEQ/L (98-107); CREATININE FOR GFR 0.77 MG/DL (0.55-1.30); GLOMERULAR FILTRATION RATE > 60.0 (>45); GLUCOSE, FASTING 146 MG/DL (70-100); POTASSIUM SERUM 3.6 MEQ/L (3.5-5.1); SODIUM LEVEL 130 MEQ/L (136-145)
[2021-07-27] MEDS: ONDANSETRON 4MG/2ML VIAL IV PRN (06:20)
[2021-07-27] MEDS: NORCO, ANEXSIA 5/325MG TABLET (HYDROcodone/ACETAMINOPHEN) PO PRN ×2 (08:46→14:57)
[2021-07-27] MEDS: OMEPRAZOLE 20MG CAP PO SCH (08:50)
[2021-07-27] MEDS: BENAZEPRIL 20 MG TAB PO SCH (08:50)
[2021-07-27] MEDS: ENOXAPARIN 40MG/0.4ML SYRINGE (J1650 PER 10MG) SC SCH (08:51)
[2021-07-27 10:00] VITALS: BP 138/72
[2021-07-27] MEDS ORDERED: CEFEPIME HCL 1 GM in D5W MINI-BAG PLUS 50 ML IV SCH (10:00)
[2021-07-27] MEDS: CEFEPIME HCL 2 GM in D5W MINI-BAG PLUS 50 ML IV SCH ×2 (10:38→18:16)
[2021-07-27] MEDS: D5W/0.9% SODIUM CHLORIDE 1,000 ML IV SCH ×2 (11:24→20:04)
[2021-07-27 14:00] VITALS: BP 136/71
[2021-07-27 19:43] VITALS: BP 112/59
[2021-07-27] MEDS ORDERED: KETOROLAC 30 MG/ML 1ML VIAL IV ONE (20:00)
[2021-07-27] MEDS: ATORVASTATIN 20 MG TAB PO SCH (20:04)
[2021-07-28] VITALS (7 sets, daily range): BP systolic 101–135; BP diastolic 56–74
[2021-07-28] MEDS: CEFEPIME HCL 2 GM in D5W MINI-BAG PLUS 50 ML IV SCH ×3 (01:43→18:12)
[2021-07-28] MEDS: D5W/0.9% SODIUM CHLORIDE 1,000 ML IV SCH ×3 (03:48→19:05)
[2021-07-28] MEDS: NORCO, ANEXSIA 5/325MG TABLET (HYDROcodone/ACETAMINOPHEN) PO PRN ×2 (04:05→18:22)
[2021-07-28 06:50] LABS: EOS % 2.3 % (0.0-3.0); HEMATOCRIT 23.5 % (36.0-47.0); LYMPH # 0.4 10^3/uL (1.5-5.0); LYMPH % 83.7 % (24.0-44.0); MEAN CORPUSCULAR HEMOGLOBIN 29.9 pg (27.0-33.0); MEAN CORPUSCULAR VOLUME 87.7 fl (80.0-96.0); MONO % 9.3 % (2.0-8.0); NEUTROPHILS % 4.7 % (36.0-66.0); RED BLOOD COUNT 2.68 10^6/uL (4.00-5.40)
[2021-07-28 06:51] LABS: PLATELET COUNT, AUTOMATED 84 10^3/uL (150-450); WHITE BLOOD COUNT 0.4 10^3/uL (4.0-10.0)
[2021-07-28 07:08] LABS: BLOOD UREA NITROGEN 14 MG/DL (7-18); CALCIUM LEVEL 7.8 MG/DL (8.8-10.2); CARBON DIOXIDE LEVEL 24 MEQ/L (21-32); CHLORIDE LEVEL 102 MEQ/L (98-107); CREATININE FOR GFR 0.75 MG/DL (0.55-1.30); GLOMERULAR FILTRATION RATE > 60.0 (>45); GLUCOSE, FASTING 171 MG/DL (70-100); POTASSIUM SERUM 3.6 MEQ/L (3.5-5.1); SODIUM LEVEL 134 MEQ/L (136-145)
[2021-07-28] MEDS: ENOXAPARIN 40MG/0.4ML SYRINGE (J1650 PER 10MG) SC SCH (08:55)
[2021-07-28] MEDS: BENAZEPRIL 20 MG TAB PO SCH (09:00)
[2021-07-28] MEDS: OMEPRAZOLE 20MG CAP PO SCH (09:00)
[2021-07-28] MEDS: NYSTATIN 500,000 U/5 ML SUSP UDC SS SCH ×2 (14:24→18:12)
[2021-07-28] MEDS: ATORVASTATIN 20 MG TAB PO SCH (21:24)
[2021-07-29] MEDS: NYSTATIN 500,000 U/5 ML SUSP UDC SS SCH ×5 (00:29→23:55)
[2021-07-29] MEDS: CEFEPIME HCL 2 GM in D5W MINI-BAG PLUS 50 ML IV SCH ×3 (01:58→17:11)
[2021-07-29 02:00] VITALS: BP 121/62
[2021-07-29 06:00] VITALS: BP 122/58
[2021-07-29] MEDS: D5W/0.9% SODIUM CHLORIDE 1,000 ML IV SCH ×3 (06:02→23:55)
[2021-07-29 07:41] LABS: EOS % 1.9 % (0.0-3.0); HEMATOCRIT 23.9 % (36.0-47.0); LYMPH # 0.4 10^3/uL (1.5-5.0); LYMPH % 73.1 % (24.0-44.0); MEAN CORPUSCULAR HEMOGLOBIN 29.4 pg (27.0-33.0); MEAN CORPUSCULAR HGB CONC 33.5 g/dl (32.0-36.5); MEAN CORPUSCULAR VOLUME 87.9 fl (80.0-96.0); MONO # 0.1 10^3/uL (0.0-0.8); MONO % 21.2 % (2.0-8.0); NEUTROPHILS % 3.8 % (36.0-66.0); RED BLOOD COUNT 2.72 10^6/uL (4.00-5.40)
[2021-07-29 07:46] LABS: PLATELET COUNT, AUTOMATED 53 10^3/uL (150-450); WHITE BLOOD COUNT 0.5 10^3/uL (4.0-10.0)
[2021-07-29 07:58] LABS: BLOOD UREA NITROGEN 7 MG/DL (7-18); CALCIUM LEVEL 8.6 MG/DL (8.8-10.2); CARBON DIOXIDE LEVEL 25 MEQ/L (21-32); CHLORIDE LEVEL 108 MEQ/L (98-107); GLOMERULAR FILTRATION RATE > 60.0 (>45); GLUCOSE, FASTING 150 MG/DL (70-100); POTASSIUM SERUM 3.5 MEQ/L (3.5-5.1); SODIUM LEVEL 137 MEQ/L (136-145)
[2021-07-29 09:36] VITALS: BP 127/74
[2021-07-29 10:00] VITALS: BP 129/74
[2021-07-29] MEDS: BENAZEPRIL 20 MG TAB PO SCH (10:13)
[2021-07-29] MEDS: OMEPRAZOLE 20MG CAP PO SCH (10:13)
[2021-07-29] MEDS: ENOXAPARIN 40MG/0.4ML SYRINGE (J1650 PER 10MG) SC SCH (10:14)
[2021-07-29] MEDS: NORCO, ANEXSIA 5/325MG TABLET (HYDROcodone/ACETAMINOPHEN) PO PRN ×2 (10:14→17:17)
[2021-07-29 14:00] VITALS: BP 123/93
[2021-07-29 18:00] VITALS: BP 114/60
[2021-07-29] MEDS: ATORVASTATIN 20 MG TAB PO SCH (23:30)
[2021-07-29] MEDS: MORPHINE 2 MG/ML 1ML VIAL IV PRN (23:56)
[2021-07-30] MEDS: CEFEPIME HCL 2 GM in D5W MINI-BAG PLUS 50 ML IV SCH ×3 (01:48→17:50)
[2021-07-30 02:00] VITALS: BP 116/62
[2021-07-30 06:00] VITALS: BP 152/81
[2021-07-30] MEDS: D5W/0.9% SODIUM CHLORIDE 1,000 ML IV SCH ×2 (06:06→08:45)
[2021-07-30] MEDS: NYSTATIN 500,000 U/5 ML SUSP UDC SS SCH (06:06)
[2021-07-30] MEDS: MORPHINE 2 MG/ML 1ML VIAL IV PRN ×3 (06:07→20:15)
[2021-07-30 06:53] LABS: EOS % 3.1 % (0.0-3.0); HEMATOCRIT 22.4 % (36.0-47.0); HEMOGLOBIN 7.7 g/dl (12.0-15.5); LYMPH # 0.4 10^3/uL (1.5-5.0); LYMPH % 67.2 % (24.0-44.0); MEAN CORPUSCULAR HEMOGLOBIN 30.2 pg (27.0-33.0); MEAN CORPUSCULAR HGB CONC 34.4 g/dl (32.0-36.5); MEAN CORPUSCULAR VOLUME 87.8 fl (80.0-96.0); MONO # 0.2 10^3/uL (0.0-0.8); NEUTROPHILS % 4.7 % (36.0-66.0); RED BLOOD COUNT 2.55 10^6/uL (4.00-5.40); WHITE BLOOD COUNT 0.6 10^3/uL (4.0-10.0)
[2021-07-30 06:54] LABS: PLATELET COUNT, AUTOMATED 34 10^3/uL (150-450)
[2021-07-30 07:19] LABS: BLOOD UREA NITROGEN 5 MG/DL (7-18); CALCIUM LEVEL 8.5 MG/DL (8.8-10.2); CARBON DIOXIDE LEVEL 24 MEQ/L (21-32); CHLORIDE LEVEL 107 MEQ/L (98-107); CREATININE FOR GFR 0.52 MG/DL (0.55-1.30); GLOMERULAR FILTRATION RATE > 60.0 (>45); GLUCOSE, FASTING 134 MG/DL (70-100); POTASSIUM SERUM 3.3 MEQ/L (3.5-5.1); SODIUM LEVEL 138 MEQ/L (136-145)
[2021-07-30] MEDS: OMEPRAZOLE 20MG CAP PO SCH ×2 (09:00→10:33)
[2021-07-30 10:00] VITALS: BP 140/66
[2021-07-30] MEDS: BENAZEPRIL 20 MG TAB PO SCH (10:33)
[2021-07-30] MEDS ORDERED: GI COCKTAIL 50ML BTL(HYOSCYAMINE/MAALOX/LIDOCAINE VISCOUS)(1:3:1) PO PRN (11:20)
[2021-07-30] MEDS: KCL 20MEQ IN D5/0.45NS 1000ML 1,000 ML IV SCH (12:26)
[2021-07-30] MEDS ORDERED: MIRALAX *UNIT DOSE* 17GM PACKET PO PRN (12:50)
[2021-07-30 14:00] VITALS: BP 140/66
[2021-07-30 18:00] VITALS: BP 140/66
[2021-07-30] MEDS: ONDANSETRON 4MG/2ML VIAL IV PRN (20:14)
[2021-07-30] MEDS: ATORVASTATIN 20 MG TAB PO SCH (20:15)
[2021-07-30 20:34] VITALS: BP 139/67
[2021-07-31] MEDS: CEFEPIME HCL 2 GM in D5W MINI-BAG PLUS 50 ML IV SCH ×3 (01:14→17:31)
[2021-07-31] MEDS: KCL 20MEQ IN D5/0.45NS 1000ML 1,000 ML IV SCH ×3 (01:19→16:19)
[2021-07-31] MEDS: MORPHINE 2 MG/ML 1ML VIAL IV PRN ×3 (01:20→17:30)
[2021-07-31 07:18] LABS: HEMATOCRIT 25.8 % (36.0-47.0); HEMOGLOBIN 8.9 g/dl (12.0-15.5); MEAN CORPUSCULAR HEMOGLOBIN 30.4 pg (27.0-33.0); MEAN CORPUSCULAR HGB CONC 34.5 g/dl (32.0-36.5); MEAN CORPUSCULAR VOLUME 88.1 fl (80.0-96.0); RED BLOOD COUNT 2.93 10^6/uL (4.00-5.40)
[2021-07-31 07:21] LABS: PLATELET COUNT, AUTOMATED 24 10^3/uL (150-450)
[2021-07-31 07:22] LABS: WHITE BLOOD COUNT 1.1 10^3/uL (4.0-10.0)
[2021-07-31 07:37] LABS: BLOOD UREA NITROGEN 6 MG/DL (7-18); CARBON DIOXIDE LEVEL 27 MEQ/L (21-32); CHLORIDE LEVEL 107 MEQ/L (98-107); CREATININE FOR GFR 0.66 MG/DL (0.55-1.30); GLOMERULAR FILTRATION RATE > 60.0 (>45); GLUCOSE, FASTING 128 MG/DL (70-100); POTASSIUM SERUM 3.7 MEQ/L (3.5-5.1); SODIUM LEVEL 141 MEQ/L (136-145)
[2021-07-31 08:10] LABS: ATYPICAL LYMPH 3 % (0-5); BASOPHILS 1 % (0-1); EOSINOPHILS 2 % (0-3); LYMPHOCYTES 70 % (16-44); MONOCYTES 15 % (0-5); NEUTROPHILS 7 % (28-66)
[2021-07-31 08:11] LABS: PLATELET ESTIMATE MARKED DECREASE (NORMAL)
[2021-07-31 08:12] LABS: ANISOCYTOSIS 1+
[2021-07-31] MEDS: OMEPRAZOLE 20MG CAP PO SCH (09:59)
[2021-07-31] MEDS: BENAZEPRIL 20 MG TAB PO SCH (09:59)
[2021-07-31 10:00] VITALS: BP 143/69
[2021-07-31] MEDS ORDERED: LIDOCAINE VISCOUS 2% SOLN 15ML UDC SS PRN (11:15)
[2021-07-31] MEDS ORDERED: HYDROcodone/APAP LIQUID 7.5-325MG 15ML UDC (LORTAB ELIXIR) PO PRN (11:15)
[2021-07-31] MEDS: FLUCONAZOLE 100 MG TAB PO SCH (13:18)
[2021-07-31 14:00] VITALS: BP 118/65
[2021-07-31 18:58] VITALS: BP 127/69
[2021-07-31] MEDS: ATORVASTATIN 20 MG TAB PO SCH (20:22)
[2021-07-31 22:00] VITALS: BP 137/77
[2021-08-01] MEDS: MORPHINE 2 MG/ML 1ML VIAL IV PRN ×3 (00:31→18:35)
[2021-08-01] MEDS: CEFEPIME HCL 2 GM in D5W MINI-BAG PLUS 50 ML IV SCH ×3 (01:28→18:34)
[2021-08-01 02:00] VITALS: BP 126/68
[2021-08-01 06:00] VITALS: BP 114/57
[2021-08-01 06:54] LABS: HEMOGLOBIN 7.4 g/dl (12.0-15.5); MEAN CORPUSCULAR HEMOGLOBIN 29.5 pg (27.0-33.0); MEAN CORPUSCULAR HGB CONC 33.6 g/dl (32.0-36.5); MEAN CORPUSCULAR VOLUME 87.6 fl (80.0-96.0); RED BLOOD COUNT 2.51 10^6/uL (4.00-5.40); WHITE BLOOD COUNT 1.2 10^3/uL (4.0-10.0)
[2021-08-01 07:07] LABS: BLOOD UREA NITROGEN 6 MG/DL (7-18); CALCIUM LEVEL 8.9 MG/DL (8.8-10.2); CARBON DIOXIDE LEVEL 28 MEQ/L (21-32); CHLORIDE LEVEL 108 MEQ/L (98-107); GLOMERULAR FILTRATION RATE > 60.0 (>45); GLUCOSE, FASTING 136 MG/DL (70-100); POTASSIUM SERUM 3.9 MEQ/L (3.5-5.1); SODIUM LEVEL 141 MEQ/L (136-145)
[2021-08-01 07:35] LABS: PLATELET COUNT, AUTOMATED 16 10^3/uL (150-450)
[2021-08-01 07:51] LABS: ATYPICAL LYMPH 1 % (0-5); EOSINOPHILS 2 % (0-3); LYMPHOCYTES 49 % (16-44); MONOCYTES 21 % (0-5); NEUTROPHILS 27 % (28-66); PLATELET ESTIMATE MARKED DECREASE (NORMAL)
[2021-08-01] MEDS: OMEPRAZOLE 20MG CAP PO SCH ×2 (09:00→09:17)
[2021-08-01] MEDS: FLUCONAZOLE 100 MG TAB PO SCH (09:15)
[2021-08-01] MEDS: KCL 20MEQ IN D5/0.45NS 1000ML 1,000 ML IV SCH (09:23)
[2021-08-01] MEDS: BENAZEPRIL 20 MG TAB PO SCH (09:33)
[2021-08-01 11:00] VITALS: BP 128/68
[2021-08-01 14:00] VITALS: BP 120/59
[2021-08-01 18:00] VITALS: BP 139/75
[2021-08-01] MEDS: ATORVASTATIN 20 MG TAB PO SCH (20:23)
[2021-08-02] MEDS: KCL 20MEQ IN D5/0.45NS 1000ML 1,000 ML IV SCH ×2 (01:37→21:01)
[2021-08-02] MEDS: CEFEPIME HCL 2 GM in D5W MINI-BAG PLUS 50 ML IV SCH ×3 (01:37→17:52)
[2021-08-02 06:26] VITALS: BP 147/75
[2021-08-02 07:05] LABS: HEMATOCRIT 22.4 % (36.0-47.0); HEMOGLOBIN 7.5 g/dl (12.0-15.5); MEAN CORPUSCULAR HEMOGLOBIN 29.6 pg (27.0-33.0); MEAN CORPUSCULAR HGB CONC 33.5 g/dl (32.0-36.5); MEAN CORPUSCULAR VOLUME 88.5 fl (80.0-96.0); RED BLOOD COUNT 2.53 10^6/uL (4.00-5.40); WHITE BLOOD COUNT 1.3 10^3/uL (4.0-10.0)
[2021-08-02 07:06] LABS: PLATELET COUNT, AUTOMATED 16 10^3/uL (150-450)
[2021-08-02 07:23] LABS: BLOOD UREA NITROGEN 5 MG/DL (7-18); CARBON DIOXIDE LEVEL 29 MEQ/L (21-32); CHLORIDE LEVEL 111 MEQ/L (98-107); CREATININE FOR GFR 0.51 MG/DL (0.55-1.30); GLOMERULAR FILTRATION RATE > 60.0 (>45); GLUCOSE, FASTING 141 MG/DL (70-100); MAGNESIUM LEVEL 1.5 MG/DL (1.8-2.4); PHOSPHORUS LEVEL 4.1 MG/DL (2.5-4.9); POTASSIUM SERUM 4.1 MEQ/L (3.5-5.1); SODIUM LEVEL 143 MEQ/L (136-145)
[2021-08-02 08:08] LABS: ATYPICAL LYMPH 2 % (0-5); LYMPHOCYTES 46 % (16-44); MONOCYTES 20 % (0-5); NEUTROPHILS 32 % (28-66)
[2021-08-02 08:09] LABS: ANISOCYTOSIS 1+; PLATELET ESTIMATE MARKED DECREASE (NORMAL)
[2021-08-02 08:16] VITALS: BP 147/75
[2021-08-02] MEDS: OMEPRAZOLE 20MG CAP PO SCH (08:31)
[2021-08-02] MEDS: FLUCONAZOLE 100 MG TAB PO SCH (08:32)
[2021-08-02] MEDS: BENAZEPRIL 20 MG TAB PO SCH (08:51)
[2021-08-02 10:00] VITALS: BP 135/67
[2021-08-02 14:00] VITALS: BP 134/67
[2021-08-02] MEDS: MAG SULF 1GM/100ML (MAG RUN) 1 GM in IV 1 EA IV SCH ×2 (14:11→15:55)
[2021-08-02 18:00] VITALS: BP 150/78
[2021-08-02] MEDS: ATORVASTATIN 20 MG TAB PO SCH (21:01)
[2021-08-02 22:00] VITALS: BP 148/77
[2021-08-03] MEDS: MORPHINE 2 MG/ML 1ML VIAL IV PRN (00:18)
[2021-08-03 02:00] VITALS: BP 139/76
[2021-08-03] MEDS: CEFEPIME HCL 2 GM in D5W MINI-BAG PLUS 50 ML IV SCH ×2 (02:44→08:43)
[2021-08-03 06:00] VITALS: BP 134/75
[2021-08-03 08:15] VITALS: BP 134/75
[2021-08-03 08:19] LABS: HEMOGLOBIN 7.8 g/dl (12.0-15.5); MEAN CORPUSCULAR HEMOGLOBIN 30.5 pg (27.0-33.0); MEAN CORPUSCULAR HGB CONC 33.9 g/dl (32.0-36.5); MEAN CORPUSCULAR VOLUME 89.8 fl (80.0-96.0); RED BLOOD COUNT 2.56 10^6/uL (4.00-5.40); WHITE BLOOD COUNT 1.4 10^3/uL (4.0-10.0)
[2021-08-03 08:21] LABS: PLATELET COUNT, AUTOMATED 16 10^3/uL (150-450)
[2021-08-03] MEDS: KCL 20MEQ IN D5/0.45NS 1000ML 1,000 ML IV SCH (08:41)
[2021-08-03 08:45] VITALS: BP 131/74
[2021-08-03 08:45] LABS: BLOOD UREA NITROGEN 6 MG/DL (7-18); CALCIUM LEVEL 9.4 MG/DL (8.8-10.2); CARBON DIOXIDE LEVEL 28 MEQ/L (21-32); CHLORIDE LEVEL 111 MEQ/L (98-107); GLOMERULAR FILTRATION RATE > 60.0 (>45); GLUCOSE, FASTING 144 MG/DL (70-100); MAGNESIUM LEVEL 1.9 MG/DL (1.8-2.4); PHOSPHORUS LEVEL 4.1 MG/DL (2.5-4.9); POTASSIUM SERUM 4.3 MEQ/L (3.5-5.1); SODIUM LEVEL 144 MEQ/L (136-145)
[2021-08-03] MEDS: BENAZEPRIL 20 MG TAB PO SCH (08:45)
[2021-08-03] MEDS: OMEPRAZOLE 20MG CAP PO SCH (08:45)
[2021-08-03] MEDS: FLUCONAZOLE 100 MG TAB PO SCH (08:46)
[2021-08-03 09:07] LABS: LYMPHOCYTES 26 % (16-44); MONOCYTES 20 % (0-5); NEUTROPHILS 50 % (28-66); PLATELET ESTIMATE DECREASED (NORMAL)
[2021-08-03 09:08] LABS: MICROCYTOSIS 1+; OVALOCYTES 1+; TEAR DROP CELLS 1+
[2021-08-04] MEDS ORDERED: HYDR-3713 PO (15:53)
[2021-08-04] MEDS ORDERED: MORP-69 PO (15:53)
== END 2021-08-03 11:12 | disposition home or self-care (01) | DRG 809 ==
LOC: M ED 10:35 → M ED INP 10:36 → OBSVTOIN 13:37 → M MSPAV 21:17
PROVIDERS: ADMIT Family Medicine; ATTEND Internal Medicine
PROC: 30233N1 Transfusion of Nonautologous Red Blood Cells into Peripheral Vein, Percutaneous Approach (ICD-10-PCS; principal; 2021-07-26)
DX: D70.1 Agranulocytosis secondary to cancer chemotherapy (principal); C34.11 Malignant neoplasm of upper lobe, right bronchus or lung; C34.2 Malignant neoplasm of middle lobe, bronchus or lung; K20.90 Esophagitis, unspecified without bleeding; D61.810 Antineoplastic chemotherapy induced pancytopenia; J44.9 Chronic obstructive pulmonary disease, unspecified; E78.5 Hyperlipidemia, unspecified; I10 Essential (primary) hypertension; Z90.49 Acquired absence of other specified parts of digestive tract; Z92.3 Personal history of irradiation; Z92.21 Personal history of antineoplastic chemotherapy; Z79.899 Other long term (current) drug therapy; Z88.2 Allergy status to sulfonamides; Z20.822 Contact with and (suspected) exposure to COVID-19; D69.6 Thrombocytopenia, unspecified; R07.89 Other chest pain; R13.10 Dysphagia, unspecified

== ENCOUNTER 2021-08-18 14:12 | Outpatient (RCR) | payer OTHER ==
[~2021-08-18 14:12] MED LIST changes: +ETOP50CA2 PO; +HYDR-3713 PO; +HYDR12.55 PO; +MORP-69 PO; +PROC10TA5 PO
== END 2021-08-19 ==
LOC: M ONCR 14:12
PROVIDERS: ATTEND General Practice
DX: C34.11 Malignant neoplasm of upper lobe, right bronchus or lung (principal)

== ENCOUNTER → 2021-08-24 | Outpatient (CLI) | payer OTHER ==
[~2021-08-24] MED LIST changes: +ACETAMINOPHEN TAB 650MG DOSE (2X325MG) PO SCH; +LEVO500T4 PO; +diphenhydrAMINE 25MG CAP PO SCH
[2021-08-24 12:15] VITALS: BP 96/57
[2021-08-24 12:44] VITALS: BP 100/62
[2021-08-24 13:30] VITALS: BP 94/62
[2021-08-24 14:27] VITALS: BP 95/60
== END ==
LOC: M ONCM 11:31
PROVIDERS: ATTEND General Practice
DX: C34.11 Malignant neoplasm of upper lobe, right bronchus or lung (principal); D64.9 Anemia, unspecified

== ENCOUNTER 2021-09-01 14:13 | Outpatient (RCR) | payer OTHER ==
[2021-08-23 15:05] LABS: BASO % 1.8 % (0.0-1.0); EOS % 1.8 % (0.0-3.0); HEMATOCRIT 22.3 % (36.0-47.0); HEMOGLOBIN 7.4 g/dl (12.0-15.5); LYMPH # 0.3 10^3/uL (1.5-5.0); LYMPH % 43.9 % (24.0-44.0); MEAN CORPUSCULAR HEMOGLOBIN 31.9 pg (27.0-33.0); MEAN CORPUSCULAR HGB CONC 33.2 g/dl (32.0-36.5); MEAN CORPUSCULAR VOLUME 96.1 fl (80.0-96.0); MONO # 0.2 10^3/uL (0.0-0.8); MONO % 28.1 % (2.0-8.0); NEUTROPHILS # 0.1 10^3/uL (1.5-8.5); NEUTROPHILS % 24.4 % (36.0-66.0); PLATELET COUNT, AUTOMATED 103 10^3/uL (150-450); RED BLOOD COUNT 2.32 10^6/uL (4.00-5.40)
[2021-08-23 15:06] LABS: WHITE BLOOD COUNT 0.6 10^3/uL (4.0-10.0)
[2021-08-23 16:02] LABS: ALBUMIN 3.5 GM/DL (3.2-5.2); ALT/SGPT 19 U/L (12-78); BILIRUBIN,TOTAL 0.8 MG/DL (0.2-1.0); BLOOD UREA NITROGEN 20 MG/DL (7-18); CALCIUM LEVEL 9.9 MG/DL (8.8-10.2); CARBON DIOXIDE LEVEL 29 MEQ/L (21-32); CHLORIDE LEVEL 98 MEQ/L (98-107); CREATININE FOR GFR 0.79 MG/DL (0.55-1.30); GLOMERULAR FILTRATION RATE > 60.0 (>45); GLUCOSE, FASTING 186 MG/DL (70-100); POTASSIUM SERUM 3.8 MEQ/L (3.5-5.1); SODIUM LEVEL 134 MEQ/L (136-145); TOTAL PROTEIN 7.5 GM/DL (6.4-8.2)
[2021-08-28 14:43] LABS: BASO % 0.5 % (0.0-1.0); EOS % 0.5 % (0.0-3.0); HEMATOCRIT 26.9 % (36.0-47.0); LYMPH # 0.7 10^3/uL (1.5-5.0); LYMPH % 16.2 % (24.0-44.0); MEAN CORPUSCULAR HEMOGLOBIN 31.8 pg (27.0-33.0); MEAN CORPUSCULAR HGB CONC 33.5 g/dl (32.0-36.5); MEAN CORPUSCULAR VOLUME 95.1 fl (80.0-96.0); MONO # 0.9 10^3/uL (0.0-0.8); NEUTROPHILS # 2.5 10^3/uL (1.5-8.5); NEUTROPHILS % 59.3 % (36.0-66.0); RED BLOOD COUNT 2.83 10^6/uL (4.00-5.40); WHITE BLOOD COUNT 4.3 10^3/uL (4.0-10.0)
[2021-08-28 14:45] LABS: PLATELET COUNT, AUTOMATED 44 10^3/uL (150-450)
[~2021-09-01 14:13] MED LIST changes: +ACETAMINOPHEN TAB 650MG DOSE (2X325MG) PO ONE; -ACETAMINOPHEN TAB 650MG DOSE (2X325MG) PO SCH; +diphenhydrAMINE 25MG CAP PO ONE; -diphenhydrAMINE 25MG CAP PO SCH
== END 2021-09-19 ==
LOC: M ONCR 14:13
PROVIDERS: ATTEND General Practice
DX: C34.11 Malignant neoplasm of upper lobe, right bronchus or lung (principal)

== ENCOUNTER → 2021-09-15 | Outpatient (CLI) | payer OTHER ==
[~2021-09-15] MED LIST changes: -ACETAMINOPHEN TAB 650MG DOSE (2X325MG) PO ONE; +PROHANCE 279.3MG/ML 15ML VIAL ONE; +PROHANCE 279.3MG/ML 5ML VIAL ONE; -diphenhydrAMINE 25MG CAP PO ONE
== END ==
LOC: M PLAIMG 12:26
PROVIDERS: ATTEND General Practice
DX: C34.11 Malignant neoplasm of upper lobe, right bronchus or lung (principal)
CPT/HCPCS: 70553; A9576

== ENCOUNTER → 2021-09-28 | Outpatient (CLI) | payer OTHER ==
[~2021-09-28] MED LIST changes: -PROHANCE 279.3MG/ML 15ML VIAL ONE; -PROHANCE 279.3MG/ML 5ML VIAL ONE
== END ==
LOC: M ONCR 09:26
PROVIDERS: ATTEND General Practice
DX: C34.11 Malignant neoplasm of upper lobe, right bronchus or lung (principal); R53.82 Chronic fatigue, unspecified; G89.29 Other chronic pain; M54.9 Dorsalgia, unspecified; Z79.891 Long term (current) use of opiate analgesic; Z79.899 Other long term (current) drug therapy; Z87.891 Personal history of nicotine dependence; Z88.1 Allergy status to other antibiotic agents; Z88.2 Allergy status to sulfonamides; Z92.21 Personal history of antineoplastic chemotherapy; Z92.3 Personal history of irradiation

== ENCOUNTER → 2021-12-29 | Outpatient (CLI) | payer OTHER ==
[~2021-12-29] MED LIST changes: +LEVO1TAB39 PO; -LEVO500T4 PO
== END ==
LOC: M PLARAD 10:00
PROVIDERS: ATTEND General Practice
DX: C34.11 Malignant neoplasm of upper lobe, right bronchus or lung (principal)

== ENCOUNTER → 2022-01-02 | Outpatient (CLI) | payer OTHER | LOC: M ONCR 13:52 | PROVIDERS: ATTEND General Practice | DX: C34.11 Malignant neoplasm of upper lobe, right bronchus or lung (principal); Z87.891 Personal history of nicotine dependence; Z79.899 Other long term (current) drug therapy; Z88.2 Allergy status to sulfonamides; Z92.21 Personal history of antineoplastic chemotherapy; Z92.3 Personal history of irradiation ==

== ENCOUNTER → 2022-03-19 | Outpatient (CLI) | payer OTHER ==
[~2022-03-19] MED LIST changes: +ISOVUE-370 76% 100ML VIAL As Ordered ONE
== END ==
LOC: M RAD 09:25
PROVIDERS: ATTEND Nurse Practitioner
DX: C34.91 Malignant neoplasm of unspecified part of right bronchus or lung (principal)
CPT/HCPCS: 71260; Q9967

== ENCOUNTER → 2022-03-29 | Outpatient (CLI) | payer OTHER ==
[~2022-03-29] MED LIST changes: -ISOVUE-370 76% 100ML VIAL As Ordered ONE; +PROHANCE 279.3MG/ML 15ML VIAL ONE; +PROHANCE 279.3MG/ML 5ML VIAL ONE
== END ==
LOC: M PLAIMG 12:00
PROVIDERS: ATTEND General Practice
DX: Z51.0 Encounter for antineoplastic radiation therapy (principal); C34.11 Malignant neoplasm of upper lobe, right bronchus or lung
CPT/HCPCS: 70553; A9576

== ENCOUNTER → 2022-04-06 | Outpatient (CLI) | payer OTHER ==
[~2022-04-06] MED LIST changes: -PROHANCE 279.3MG/ML 15ML VIAL ONE; -PROHANCE 279.3MG/ML 5ML VIAL ONE
== END ==
LOC: M ONCR 13:52
PROVIDERS: ATTEND General Practice
DX: C34.11 Malignant neoplasm of upper lobe, right bronchus or lung (principal); M54.9 Dorsalgia, unspecified; Z79.899 Other long term (current) drug therapy; Z87.891 Personal history of nicotine dependence; Z88.2 Allergy status to sulfonamides; Z88.8 Allergy status to other drugs, medicaments and biological substances; Z92.3 Personal history of irradiation; Z92.21 Personal history of antineoplastic chemotherapy

== ENCOUNTER → 2022-07-06 | Outpatient (CLI) | payer OTHER ==
[~2022-07-06] MED LIST changes: +LORA1TAB4 PO; +PROHANCE 279.3MG/ML 15ML VIAL As Ordered ONE; +PROHANCE 279.3MG/ML 5ML VIAL As Ordered ONE
== END ==
LOC: M RAD 10:31
PROVIDERS: ATTEND General Practice
DX: C34.11 Malignant neoplasm of upper lobe, right bronchus or lung (principal)
CPT/HCPCS: 70553; A9576

== ENCOUNTER → 2022-07-10 | Outpatient (CLI) | payer OTHER ==
[~2022-07-10] MED LIST changes: -PROHANCE 279.3MG/ML 15ML VIAL As Ordered ONE; -PROHANCE 279.3MG/ML 5ML VIAL As Ordered ONE
[2022-07-10 11:00] LABS: THYROID STIMULATING HORMONE 1.844 uIU/ML (0.55-4.78)
[2022-07-10 11:01] LABS: FREE T4 1.17 NG/DL (0.89-1.76)
== END ==
LOC: M ONCR 09:24
PROVIDERS: ATTEND General Practice
DX: C34.11 Malignant neoplasm of upper lobe, right bronchus or lung (principal); Z79.899 Other long term (current) drug therapy; Z87.891 Personal history of nicotine dependence; Z88.1 Allergy status to other antibiotic agents; Z88.2 Allergy status to sulfonamides; Z92.21 Personal history of antineoplastic chemotherapy; Z92.3 Personal history of irradiation
CPT/HCPCS: 36415; 84439; 84443; G0463

== ENCOUNTER → 2022-09-14 | Outpatient (CLI) | payer OTHER ==
[~2022-09-14] MED LIST changes: +LIDO2SOBTL PO; -LIDO2SOL9 PO; +LORA1TAB23 PO; -LORA1TAB4 PO
== END ==
LOC: M WHC 07:27
PROVIDERS: ATTEND Internal Medicine
DX: K80.20 Calculus of gallbladder without cholecystitis without obstruction (principal)

== ENCOUNTER → 2022-10-16 | Outpatient (CLI) | payer OTHER | LOC: M WHC 15:26 | PROVIDERS: ATTEND Nurse Practitioner Family | DX: Z12.31 Encounter for screening mammogram for malignant neoplasm of breast (principal) ==

== ENCOUNTER → 2022-10-16 | Outpatient (REF) | payer OTHER | LOC: M SFHCWAGY 18:15 | PROVIDERS: ATTEND Nurse Practitioner Family | DX: Z12.4 Encounter for screening for malignant neoplasm of cervix (principal) | CPT/HCPCS: 87624; G0123 ==

== ENCOUNTER → 2022-10-22 | Outpatient (CLI) | payer OTHER ==
[2022-10-22 11:07] LABS: ALBUMIN 3.7 G/DL (3.2-5.2); ALKALINE PHOSPHATASE 65 U/L (46-116); ALT/SGPT 30 U/L (7.0-40); AST/SGOT 18 U/L (<34); BILIRUBIN,TOTAL 0.5 MG/DL (0.3-1.2); BLOOD UREA NITROGEN 15 MG/DL (9-23); CALCIUM LEVEL 8.8 MG/DL (8.3-10.6); CARBON DIOXIDE LEVEL 31 MMOL/L (20-31); CHLORIDE LEVEL 105 MMOL/L (98-107); CREATININE FOR GFR 0.74 MG/DL (0.55-1.30); GLOMERULAR FILTRATION RATE > 60.0 (>45); GLUCOSE, FASTING 184 MG/DL (74-106); POTASSIUM SERUM 3.5 MMOL/L (3.5-5.1); SODIUM LEVEL 142 MMOL/L (136-145); TOTAL PROTEIN 6.5 G/DL (5.7-8.2)
== END ==
LOC: M LAB 10:20
PROVIDERS: ATTEND General Practice
DX: Z51.0 Encounter for antineoplastic radiation therapy (principal); C34.11 Malignant neoplasm of upper lobe, right bronchus or lung

== ENCOUNTER 2022-10-30 01:35 | Emergency (ER) | payer OTHER ==
[~2022-10-30] VITALS: Ht 167.6 cm; Wt 100.9 kg
[2022-10-30 01:35] VITALS: BP 158/76; TEMP 98.6; O2SAT 96
[~2022-10-30 01:35] MED LIST changes: -PROHANCE 279.3MG/ML 15ML VIAL As Ordered ONE; -PROHANCE 279.3MG/ML 5ML VIAL As Ordered ONE
== END 2022-10-30 02:46 | disposition left against medical advice (07) ==
LOC: M ED 01:35
DX: Z53.21 Procedure and treatment not carried out due to patient leaving prior to being seen by health care provider (principal)

== ENCOUNTER → 2022-10-30 | Outpatient (CLI) | payer OTHER ==
[~2022-10-30] MED LIST changes: +PROHANCE 279.3MG/ML 15ML VIAL As Ordered ONE; +PROHANCE 279.3MG/ML 5ML VIAL As Ordered ONE
== END ==
LOC: M RAD 14:43
PROVIDERS: ATTEND General Practice
DX: Z51.0 Encounter for antineoplastic radiation therapy (principal)
CPT/HCPCS: 70553; A9576

== ENCOUNTER 2022-11-29 09:49 | Day surgery (SDC) | payer OTHER ==
[~2022-11-29] VITALS: Ht 167.6 cm; Wt 101.2 kg
[~2022-11-29 09:49] MED LIST changes: +ALEV220T22 PO; +BENA-8 PO; +FAMO40TA3 PO; +METF500T13 PO; +NS 1,000 ML IV ONE; +OMEP-173 PO; +SUCR1TAB56 PO
[2022-11-29] MEDS ORDERED: OSTE1TAB2 PO (10:28)
[2022-11-29 11:55] VITALS: TEMP 98.6
[2022-11-29 12:15] VITALS: BP 176/82; O2SAT 97
== END 2022-11-29 12:15 | disposition home or self-care (01) ==
LOC: M OPP 09:49
PROVIDERS: ATTEND Surgery
DX: K31.89 Other diseases of stomach and duodenum (principal); K44.9 Diaphragmatic hernia without obstruction or gangrene; R13.10 Dysphagia, unspecified; Z87.891 Personal history of nicotine dependence; Z79.1 Long term (current) use of non-steroidal anti-inflammatories (NSAID); Z79.02 Long term (current) use of antithrombotics/antiplatelets; Z79.899 Other long term (current) drug therapy; Z88.2 Allergy status to sulfonamides; Z88.8 Allergy status to other drugs, medicaments and biological substances

== ENCOUNTER → 2023-03-05 | Outpatient (CLI) | payer OTHER ==
[~2023-03-05] MED LIST changes: -NS 1,000 ML IV ONE; +OSTE1TAB2 PO; +PROHANCE 279.3MG/ML 15ML VIAL As Ordered ONE; +PROHANCE 279.3MG/ML 5ML VIAL As Ordered ONE
== END ==
LOC: M RAD 10:26
PROVIDERS: ATTEND General Practice
DX: Z51.0 Encounter for antineoplastic radiation therapy (principal); C34.11 Malignant neoplasm of upper lobe, right bronchus or lung
CPT/HCPCS: 70553; A9576

== ENCOUNTER → 2023-03-12 | Outpatient (CLI) | payer OTHER ==
[~2023-03-12] MED LIST changes: -PROHANCE 279.3MG/ML 15ML VIAL As Ordered ONE; -PROHANCE 279.3MG/ML 5ML VIAL As Ordered ONE
== END ==
LOC: M ONCR 10:07
PROVIDERS: ATTEND General Practice
DX: C34.11 Malignant neoplasm of upper lobe, right bronchus or lung (principal); Z71.2 Person consulting for explanation of examination or test findings; Z92.3 Personal history of irradiation; Z92.21 Personal history of antineoplastic chemotherapy; Z87.891 Personal history of nicotine dependence; Z79.1 Long term (current) use of non-steroidal anti-inflammatories (NSAID); Z79.899 Other long term (current) drug therapy; Z88.1 Allergy status to other antibiotic agents; Z88.2 Allergy status to sulfonamides; Z88.8 Allergy status to other drugs, medicaments and biological substances

== ENCOUNTER → 2023-08-05 | Outpatient (CLI) | payer OTHER ==
[~2023-08-05] MED LIST changes: +LIDO100S29 PO; -LIDO2SOBTL PO; +PROHANCE 279.3MG/ML 15ML VIAL As Ordered ONE; +PROHANCE 279.3MG/ML 5ML VIAL As Ordered ONE
== END ==
LOC: M RAD 10:29
PROVIDERS: ATTEND General Practice
DX: Z51.0 Encounter for antineoplastic radiation therapy (principal); C34.90 Malignant neoplasm of unspecified part of unspecified bronchus or lung
CPT/HCPCS: 70553; A9576

== ENCOUNTER → 2023-08-07 | Outpatient (CLI) | payer OTHER ==
[~2023-08-07] MED LIST changes: -PROHANCE 279.3MG/ML 15ML VIAL As Ordered ONE; -PROHANCE 279.3MG/ML 5ML VIAL As Ordered ONE
== END ==
LOC: M ONCR 10:36
PROVIDERS: ATTEND General Practice
DX: C34.11 Malignant neoplasm of upper lobe, right bronchus or lung (principal); G50.1 Atypical facial pain; Z71.2 Person consulting for explanation of examination or test findings; Z79.1 Long term (current) use of non-steroidal anti-inflammatories (NSAID); Z79.85 Long-term (current) use of injectable non-insulin antidiabetic drugs; Z79.899 Other long term (current) drug therapy; Z87.891 Personal history of nicotine dependence; Z88.1 Allergy status to other antibiotic agents; Z88.2 Allergy status to sulfonamides; Z88.8 Allergy status to other drugs, medicaments and biological substances; Z92.21 Personal history of antineoplastic chemotherapy; Z92.3 Personal history of irradiation

== ENCOUNTER → 2023-09-30 | Outpatient (CLI) | payer OTHER | LOC: M WHC 11:23 | PROVIDERS: ATTEND Nurse Practitioner Family | DX: Z12.31 Encounter for screening mammogram for malignant neoplasm of breast (principal); Z53.9 Procedure and treatment not carried out, unspecified reason ==

== ENCOUNTER → 2023-11-15 | Outpatient (CLI) | payer OTHER | LOC: M WHC 11:22 | PROVIDERS: ATTEND Internal Medicine | DX: Z12.31 Encounter for screening mammogram for malignant neoplasm of breast (principal) ==

== ENCOUNTER → 2024-01-30 | Outpatient (CLI) | payer OTHER ==
[~2024-01-30] MED LIST changes: +PROHANCE 279.3MG/ML 15ML VIAL As Ordered ONE; +PROHANCE 279.3MG/ML 5ML VIAL As Ordered ONE
== END ==
LOC: M RAD 14:38
PROVIDERS: ATTEND General Practice
DX: C34.11 Malignant neoplasm of upper lobe, right bronchus or lung (principal)
CPT/HCPCS: 70553; A9576

== ENCOUNTER → 2024-02-06 | Outpatient (CLI) | payer OTHER ==
[~2024-02-06] MED LIST changes: -PROHANCE 279.3MG/ML 15ML VIAL As Ordered ONE; -PROHANCE 279.3MG/ML 5ML VIAL As Ordered ONE
== END ==
LOC: M ONCR 10:43
PROVIDERS: ATTEND General Practice
DX: C34.11 Malignant neoplasm of upper lobe, right bronchus or lung (principal); R19.7 Diarrhea, unspecified; Z87.891 Personal history of nicotine dependence; Z92.21 Personal history of antineoplastic chemotherapy; Z92.3 Personal history of irradiation; Z79.85 Long-term (current) use of injectable non-insulin antidiabetic drugs; Z88.1 Allergy status to other antibiotic agents; Z88.2 Allergy status to sulfonamides; Z88.8 Allergy status to other drugs, medicaments and biological substances; Z79.1 Long term (current) use of non-steroidal anti-inflammatories (NSAID); Z79.899 Other long term (current) drug therapy

== ENCOUNTER → 2024-02-24 | Outpatient (CLI) | payer OTHER ==
[~2024-02-24] MED LIST changes: +ISOVUE-370 76% 100ML VIAL As Ordered ONE
== END ==
LOC: M RAD 09:57
PROVIDERS: ATTEND Internal Medicine
DX: Z85.118 Personal history of other malignant neoplasm of bronchus and lung (principal); R91.8 Other nonspecific abnormal finding of lung field
CPT/HCPCS: 71260; Q9967

== ENCOUNTER → 2024-07-30 | Outpatient (CLI) | payer MEDICARE ==
[~2024-07-30] MED LIST changes: -ISOVUE-370 76% 100ML VIAL As Ordered ONE; +PROHANCE 279.3MG/ML 15ML VIAL As Ordered ONE; +PROHANCE 279.3MG/ML 5ML VIAL As Ordered ONE
== END ==
LOC: M RAD 10:40
PROVIDERS: ATTEND General Practice
DX: C34.11 Malignant neoplasm of upper lobe, right bronchus or lung (principal)
CPT/HCPCS: 70553; A9576

== ENCOUNTER → 2024-08-03 | Outpatient (CLI) | payer MEDICARE ==
[~2024-08-03] MED LIST changes: +ISOVUE-370 76% 100ML VIAL As Ordered ONE; -PROHANCE 279.3MG/ML 15ML VIAL As Ordered ONE; -PROHANCE 279.3MG/ML 5ML VIAL As Ordered ONE
== END ==
LOC: M RAD 08:58
PROVIDERS: ATTEND Nurse Practitioner
DX: C34.11 Malignant neoplasm of upper lobe, right bronchus or lung (principal)
CPT/HCPCS: 71260; Q9967

== ENCOUNTER → 2024-08-06 | Outpatient (CLI) | payer MEDICARE, OTHER ==
[~2024-08-06] MED LIST changes: -ISOVUE-370 76% 100ML VIAL As Ordered ONE
== END ==
LOC: M ONCR 11:53
PROVIDERS: ATTEND General Practice
DX: Z08 Encounter for follow-up examination after completed treatment for malignant neoplasm (principal); Z85.118 Personal history of other malignant neoplasm of bronchus and lung; Z87.891 Personal history of nicotine dependence; Z92.21 Personal history of antineoplastic chemotherapy; Z92.3 Personal history of irradiation; Z88.1 Allergy status to other antibiotic agents; Z88.2 Allergy status to sulfonamides; Z88.8 Allergy status to other drugs, medicaments and biological substances; Z79.899 Other long term (current) drug therapy

== ENCOUNTER 2024-12-31 10:37 | Emergency (ER) | payer MEDICARE ==
[~2024-12-31] VITALS: Ht 167.6 cm; Wt 85.8 kg
[~2024-12-31 10:37] MED LIST changes: -IBUP-1022 PO; +IBUP600T42 PO
[2024-12-31] MEDS ORDERED: SEMA1PEN2 (10:58)
[2024-12-31] MEDS: KETOROLAC 30 MG/ML 1 ML VIAL IM ONE (13:50)
[2024-12-31 15:37] VITALS: BP 140/70; TEMP 96.4; O2SAT 96
== END 2024-12-31 15:40 | disposition home or self-care (01) ==
LOC: M ED 10:37
DX: M94.0 Chondrocostal junction syndrome [Tietze] (principal); Z88.2 Allergy status to sulfonamides; Z88.8 Allergy status to other drugs, medicaments and biological substances; Z79.02 Long term (current) use of antithrombotics/antiplatelets; Z79.1 Long term (current) use of non-steroidal anti-inflammatories (NSAID); Z79.899 Other long term (current) drug therapy
CPT/HCPCS: 71101; 96372; 99283; J1885

== ENCOUNTER → 2025-01-29 | Outpatient (CLI) | payer MEDICARE ==
[~2025-01-29] MED LIST changes: +PROHANCE 279.3MG/ML 15ML VIAL As Ordered ONE; +PROHANCE 279.3MG/ML 5ML VIAL As Ordered ONE; +SEMA1PEN2
== END ==
LOC: M RAD 12:48
PROVIDERS: ATTEND General Practice
DX: C34.11 Malignant neoplasm of upper lobe, right bronchus or lung (principal); R90.82 White matter disease, unspecified; R90.89 Other abnormal findings on diagnostic imaging of central nervous system
CPT/HCPCS: 70553; 71250; A9576

== ENCOUNTER → 2025-01-29 | Outpatient (CLI) | payer MEDICARE ==
[~2025-01-29] MED LIST changes: -PROHANCE 279.3MG/ML 15ML VIAL As Ordered ONE; -PROHANCE 279.3MG/ML 5ML VIAL As Ordered ONE
== END ==
LOC: M RAD 12:49
PROVIDERS: ATTEND Internal Medicine Hematology & Oncology
DX: C34.11 Malignant neoplasm of upper lobe, right bronchus or lung (principal)

== ENCOUNTER → 2025-02-05 | Outpatient (CLI) | payer MEDICARE | LOC: M ONCR 10:38 | PROVIDERS: ATTEND General Practice | DX: Z08 Encounter for follow-up examination after completed treatment for malignant neoplasm (principal); Z85.118 Personal history of other malignant neoplasm of bronchus and lung; Z87.891 Personal history of nicotine dependence; Z92.21 Personal history of antineoplastic chemotherapy; Z92.3 Personal history of irradiation; Z88.1 Allergy status to other antibiotic agents; Z88.2 Allergy status to sulfonamides; Z88.8 Allergy status to other drugs, medicaments and biological substances; Z79.85 Long-term (current) use of injectable non-insulin antidiabetic drugs; Z79.899 Other long term (current) drug therapy ==